=== PATIENT | female | born 1955 | race Hispanic/Latino ===

== ENCOUNTER 2017-12-05 15:28 | Emergency (ER) | payer OTHER ==
[~2017-12-05 15:28] MED LIST: IBUP-2077 PO; METF500T6 PO; NAPR220C15 PO; PANT40TA25 PO; TYL3 PO
== END 2017-12-05 18:08 | disposition home or self-care (01) ==
LOC: EDH 15:28
DX: M25.512 Pain in left shoulder (principal); M54.9 Dorsalgia, unspecified; E11.9 Type 2 diabetes mellitus without complications; I10 Essential (primary) hypertension; E78.5 Hyperlipidemia, unspecified
CPT/HCPCS: 72100; 73030

== ENCOUNTER 2024-11-07 14:57 | Inpatient (IN) | payer OTHER ==
[~2024-11-07] VITALS: Ht 154.9 cm; Wt 79.0 kg
[~2024-11-07 14:57] MED LIST changes: +METF-444 PO; -METF500T6 PO; -PANT40TA25 PO; +PANT40TA54 PO
[2024-11-07 15:21] LABS: BASOPHILS # (AUTO) 0.07 K/uL (0.00-0.20); BASOPHILS % (AUTO) 0.7 % (0.0-5.0); EOSINOPHILS # (AUTO) 0.24 K/uL (0.00-0.70); EOSINOPHILS % (AUTO) 2.5 % (0.0-8.0); HEMATOCRIT 40.1 % (36-48); IMMATURE GRANULOCYTE ABSOLUTE 0.03 K/uL (0-1); LYMPHOCYTES # (AUTO) 3.3 K/uL (1.0-4.8); LYMPHOCYTES % (AUTO) 33.9 % (21.0-51.0); MEAN CORPUSCULAR HEMOGLOBIN 31.3 pg (27.0-33.0); MEAN CORPUSCULAR HGB CONC 33.7 g/dL (32.0-36.0); MONOCYTES # (AUTO) 0.8 K/uL (0.1-1.0); MONOCYTES % (AUTO) 7.8 % (3.0-13.0); NEUTROPHILS # (AUTO) 5.4 K/uL (1.8-7.7); NEUTROPHILS % (AUTO) 54.8 % (40.0-77.0); PLATELET COUNT (AUTO) 268 K/uL (130-400); RED BLOOD CELL COUNT(AUTO) 4.31 MIL/uL (4.00-5.50); RED CELL DISTRIBUTION WIDTH 12.6 % (11.0-15.5); WHITE BLOOD COUNT (AUTO) 9.8 K/uL (4.8-10.8)
[2024-11-07 15:31] LABS: CREATININE 0.9 mg/dL (0.5-1.0); POTASSIUM 3.8 mmol/L (3.5-5.1)
[2024-11-07 15:33] LABS: INR 1.03 (0.85-1.15); PROTHROMBIN TIME 10.9 SEC (9.6-11.6)
[2024-11-07] MEDS ORDERED: CIPR500S4 PO (15:41)
[2024-11-07] MEDS ORDERED: MULT-1203 PO (15:41)
[2024-11-07] MEDS ORDERED: ASPI-1197 PO (15:41)
[2024-11-07] MEDS ORDERED: METR-172 PO (15:41)
[2024-11-07 15:42] LABS: B-TYPE NATRIURETIC PEPTIDE 18 pg/mL (0-100)
--- NOTE | 2024-11-07 16:26 | ERN ---
ED Note History of Present Illness Stated Complaint: ABD PAIN, CP Chief Complaint: Chest Pain Time Seen by MD: 15:00 Dictation: History of present illness: 69-year-old female with past medical history of diabetes, hypertension, diverticulitis, renal stones presented with complaints of sudden onset of chest pain radiating to neck for past 1 hour. Patient was traveling from [place] to [place] when she developed chest pain which lasted for couple of minutes, but her "neck tightness "persists. She also had loose stools with lower abdominal pain since yesterday for which she consulted a doctor at [place]-prescribed her metronidazole and ciprofloxacin tablets. She also complains of left-sided tingling sensation which lasted for a minute, nausea and metallic taste in her mouth. At the time of presentation her vitals were stable. Allergies: Coded Allergies: No Known Drug Allergies (Unverified Allergy, Unknown, 02/11/14) Home Meds Active Scripts Losartan Potassium (Losartan Potassium) 50 Mg Tablet, 1 TAB PO DAILY for 30 Days, #30 TAB 0 Refills Prov:ELEAZAR DUBOSE MD 11/07/24 Semaglutide (Ozempic) 0.25 Mg/0.368 Ml Pen.injctr, 0.25 MG SQ QWEEK, #4 EA 0 Refills Prov:ELEAZAR DUBOSE MD 11/07/24 Fenofibrate,Micronized (Fenofibrate) 134 Mg Capsule, 1 CAP PO DAILY for 30 Days, #30 CAP 0 Refills Prov:ELEAZAR DUBOSE MD 11/07/24 Reported Medications Ciprofloxacin (Cipro) 500 Mg/5 Ml Juana.mc.rec, 500 MG PO BID 11/07/24 Metronidazole (Metronidazole) 500 Mg Tablet, 1 TAB PO BID for 7 Days, #14 TAB 0 Refills 11/07/24 Multivitamin (Multi Vitamin Daily) 1 Each Tablet, 1 TAB PO DAILY for 30 Days, #30 TAB 0 Refills 11/07/24 Aspirin (Aspirin) 81 Mg Tab.chew, 1 TAB PO DAILY for 30 Days, #30 TAB 0 Refills 11/07/24 Pantoprazole Sodium (Pantoprazole Sodium) 40 Mg Tablet.dr, 40 MG PO DAILY, TAB 04/12/16 Discontinued Reported Medications Acetaminophen with Codeine (Tylenol with Codeine #3) 1 Tab Tab, 1 TAB PO TID PRN for PAIN LEVEL 6 TO 10, TAB 04/12/16 Ibuprofen (Ibuprofen 800 mg Tab) 800 Mg Tab, 800 MG PO Q6H for PAIN LEVEL 1 TO 5, TAB 04/12/16 Metformin HCl (Metformin HCl) 500 Mg Tablet, 500 MG PO BID, TAB 04/12/16 Past Medical History Past Medical History: Diabetes-Type II, Hypertension Surgical History: Appendectomy, Hysterectomy, Tonsillectomy, Cholecystectomy Review of System Dictation REVIEW OF SYSTEMS Positive for abdominal pain, loose stools, neck tightness CONSTITUTIONAL: Denies fevers, chills, or night sweats. No unintentional weight loss reported. ENT: No hearing loss, otalgia, otorrhea, rhinitis, rhinorrhea, hoarseness, or sore throat. CARDIOVASCULAR: Denies any exertional angina, dyspnea on exertion, orthopnea, paroxysmal nocturnal dyspnea, palpitations claudication. PULMONARY: Denies any shortness of breath, cough, phlegm / sputum, hemoptysis, pleuritic chest pain. SLEEP: Denies morning headaches, daytime somnolence or napping. Denies difficulty falling asleep, staying asleep, waking from sleep. Denies knowledge of snoring. GASTROINTESTINAL: Denies any type of dysphagia to either liquids or solids. Denies nausea, vomiting, abdominal pain, diarrhea, constipation, blood in stools . NEUROLOGICAL: Denies headache, motor weakness, sensory deficit, vertigo / spinning sensation, gait abnormalities, or tremors. GENITOURINARY: Denies frequency, urgency, nocturia, hematuria or incontinence, low urinary stream, straining to void, urinary intermittency or hesitancy ENDOCRINOLOGY: Denies polyuria, polydipsia, polyphagia or heat / cold intole beena. HEMATOLOGY: Denies thrombophilia / previous clots, or coagulopathy / bleeding disorders. ONCOLOGIC: Denies personal history of malignancy. DERMATOLOGIC: Denies rashes or pruritus. PSYCHIATRIC: Denies any suicidal or homicidal ideation. Denies hallucinations. Initial Vital Sign VS Vital Signs Date Time Temp Pulse Resp B/P (MAP) Pulse Ox O2 Delivery O2 Flow Rate FiO2 11/07/24 15:01 98.6 80 16 155/94 97 Room Air 11/07/24 16:30 0 21 Physical Exam Dictation PHYSICAL EXAM GENERAL APPEARANCE: Well nourished . Awake and alert. Oriented to time, place and person. No acute cardiopulmonary distress. HEENT: Head normocephalic , atraumatic. Sclera anicteric . Pupils are round and reactive. Extraocular movements intact . No conjunctival injection. No nasal congestion. No throat congestion .Oral mucosa moist. NECK: Supple. No JVD. No thyromegaly. No submental, submandibular, pre- /postauricular, occipital or supraclavicular lymphadenopathy. No carotid bruits. CHEST: Normal chest expansion. No Telemetry. LUNGS: Clear to auscultation bilaterally . No rales, rhonchi or any wheezing. Equal tactile fremitus. Resonant to percussion . CARDIOVASCULAR: Regular rate and rhythm. S1 and S2 normal. No rubs, murmurs or gallops. ABDOMEN: Generalized abdominal tenderness + Soft,and nondistended. There is no rebound tenderness, voluntary guarding, or rigidity. No hepatosplenomegaly. Increased bowel sounds NEUROLOGICAL: Cranial nerves II-XII grossly intact. Motor is 5/5 in bilateral upper and lower extremities . No sensory deficits. EXTREMITIES: No edema, No cyanosis , No clubbing. Good capillary refill. SKIN: No skin breakdown. No rashes or lesions . PSYCHIATRY: Normal affect .No auditory or visual hallucinations. Normal speech. No dysarthria. Results (Laboratory/Radiology) Laboratory/Radiology Laboratory Tests Test 11/07/24 15:17 11/07/24 15:50 11/07/24 21:26 11/08/24 03:25 White Blood Count 9.8 K/uL (4.8-10.8) Red Blood Count 4.31 MIL/uL (4.00-5.50) Hemoglobin 13.5 g/dL (12.0-16.0) Hematocrit 40.1 % (36-48) Mean Corpuscular Volume 93.0 fL (79-99) Mean Corpuscular Hemoglobin 31.3 pg (27.0-33.0) Mean Corpuscular Hemoglobin Concent 33.7 g/dL (32.0-36.0) Red Cell Distribution Width 12.6 % (11.0-15.5) Platelet Count 268 K/uL (130-400) Mean Platelet Volume 10.0 fL (7.5-10.5) Immature Granulocyte % (Auto) 0.3 % (0-1) Neutrophils (%) (Auto) 54.8 % (40.0-77.0) Lymphocytes (%) (Auto) 33.9 % (21.0-51.0) Monocytes (%) (Auto) 7.8 % (3.0-13.0) Eosinophils (%) (Auto) 2.5 % (0.0-8.0) Basophils (%) (Auto) 0.7 % (0.0-5.0) Neutrophils # (Auto) 5.4 K/uL (1.8-7.7) Lymphocytes # (Auto) 3.3 K/uL (1.0-4.8) Monocytes # (Auto) 0.8 K/uL (0.1-1.0) Eosinophils # (Auto) 0.24 K/uL (0.00-0.70) Basophils # (Auto) 0.07 K/uL (0.00-0.20) Absolute Immature Granulocyte (auto 0.03 K/uL (0-1) Nucleated Red Blood Cells 0.0 % (0.0-0.19) Prothrombin Time 10.9 SEC (9.6-11.6) Prothromb Time International Ratio 1.03 (0.85-1.15) Sodium Level 138 mmol/L (136-145) 139 mmol/L (136-145) Potassium Level 3.8 mmol/L (3.5-5.1) 3.7 mmol/L (3.5-5.1) Chloride Level 101 mmol/L (101-111) 106 mmol/L (101-111) Carbon Dioxide Level 29 mmol/L (21-32) 25 mmol/L (21-32) Blood Urea Nitrogen 12 mg/dL (7-18) 8 mg/dL (7-18) Creatinine 0.9 mg/dL (0.5-1.0) 0.7 mg/dL (0.5-1.0) Glomerular Filtration Rate Calc 68 mL/min (>90) 92 mL/min (>90) Random Glucose 115 mg/dL (70-105) H 138 mg/dL (70-105) H Total Calcium 9.3 mg/dL (8.5-10.1) 8.2 mg/dL (8.5-10.1) L Magnesium Level 2.00 mg/dL (1.80-2.40) Troponin I High Sensitivity 12 ng/L (4-50) B-Type Natriuretic Peptide 18 pg/mL (0-100) Urine Color LIGHT-YELLOW (YELLOW) Urine Appearance CLEAR (CLEAR) Urine pH 5.5 (5.0-8.0) Urine Specific [place] 1.006 (1.001-1.031) Urine Protein NEGATIVE mg/dL (NEGATIVE) Urine Glucose (UA) NEGATIVE mg/dL (NEGATIVE) Urine Ketones NEGATIVE mg/dL (NEGATIVE) Urine Occult Blood NEGATIVE (NEGATIVE) Urine Nitrate NEGATIVE (NEGATIVE) Urine Bilirubin NEGATIVE mg/dL (NEGATIVE) Urine Urobilinogen 0.2 mg/dL (0.2-1.0) Urine Leukocyte Esterase NEGATIVE Hai/uL Whole Blood Glucose 122 MG/DL (70-110) H Total Bilirubin 0.7 mg/dL (0.2-1.0) Aspartate Amino Transf (AST/SGOT) 28 U/L (10-37) Alanine Aminotransferase (ALT/SGPT) 30 U/L (12-78) Alkaline Phosphatase 66 U/L (50-136) Total Protein 6.7 g/dL (6.0-8.3) Albumin 3.1 g/dL (3.5-5.0) L Test 11/08/24 05:41 Whole Blood Glucose 137 MG/DL (70-110) H EKG Comment: Ventricular rate 80, regular sinus rhythm WA 166, QTC [address] segment elevation or depression Flattening of T-waves in leads 2, 3, AVF, V4 V5 V6. X-RAY Comment: PROCEDURE: CXR1VW - CHEST 1VW Exam Type: CHEST 1VW Clinical Information: CP Comparison: None Findings: The lungs are clear of infiltrates. The heart is normal in size. The bony and soft tissue structures of the chest are unremarkable. Impression: Clear lungs. DICTATED BY: BRIGITTE VIDAL MD DATE: 11/07/24 1639 ELECTRONICALLY SIGNED BY: BRIGITTE VIDAL MD DATE: 11/07/[address] Scan Comment: PROCEDURE: ABD PEL WO - CT ABDOMEN/PELVIS W/O CONTRAST Exam Type: CT ABDOMEN/PELVIS W/O CONTRAST Clinical Information: Loose stools, abdominal pain, history of diverticulitis Comparison: None CT Dose Index (CTDI): 10.20 mGy Dose Length Product (DLP): 530.00 total mGy-cm PROTOCOL: Routine noncontrast helical scanning of the abdomen and pelvis was performed at 5mm collimation. Findings: No evidence of nephro or ureterolithiasis is found. No hydronephrosis or ureteral dilatation is seen. The lung bases are clear. The stomach is unremarkable. It shows no wall thickening. No gross ulceration is seen. It is not overly distended. There are no surrounding inflammatory changes. No wall lesions are identified to suggest cancer. The spleen is unremarkable. It is not enlarged. The pancreas shows normal anatomy. It is not fatty replaced. It shows no lesions. The pancreatic duct is not dilated. The gallbladder is surgically absent. The adrenal glands are unremarkable. There is no enlargement. No lesions are noted. The liver is unremarkable. It shows no focal masses. The appendix is unremarkable. It shows no evidence of inflammation. No appendicolith is seen. The small bowel is unremarkable. There is no evidence of dilatation to suggest obstruction. No evidence of adynamic ileus is seen. There is no small bowel wall thickening to suggest enteritis. The large bowel shows diverticulosis particularly involving the sigmoid colon. In addition, there are inflammatory changes of the sigmoid suggestive of acute diverticulitis. There is no evidence of bowel perforation. The colon is otherwise unremarkable. The urinary bladder is unremarkable. There is no wall thickening to suggest tumor or inflammation. There are no intraluminal calculi. There are no diverticula. There is no evidence of chronic bladder outlet obstruction. There is no evidence of urinary bladder distention to suggest urinary retention. The other pelvic structures are unremarkable. The bony and vascular structures are unremarkable for the patient's age. IMPRESSION: Acute sigmoid diverticulitis without perforation. This study was performed using dose reduction techniques to include automated exposure control and/or adjustment of the mA and/or kV according to patient size. ED Course ED Course Orders Procedure Category Date Status Time Cbc With Differential LAB 11/07/24 Complete 15:05 Prothrombin Time With LAB 11/07/24 Complete INR 15:05 B-Type Natriuretic LAB 11/07/24 Complete Peptide 15:05 Chest 1vw RAD 11/07/24 Resulted 15:05 12 Lead Ekg Tracing- EKG 11/07/24 Complete Technical 15:05 Magnesium LAB 11/07/24 Complete 15:05 Troponin I High LAB 11/07/24 Complete Sensitivity 15:05 Urinalysis Profile LAB 11/07/24 Complete 15:05 Bedside Troponin-I LAB.ER 11/07/24 In Process (Poc) 15:05 Basic Metabolic Panel LAB 11/07/24 Complete 15:05 Ct Abdomen/Pelvis W/O CT 11/07/24 Resulted Contrast 16:09 Pantoprazole 40mg Inj PHA 11/07/24 Complete (Protonix 40mg Inj 16:30 Ketorolac PHA 11/07/24 Complete Tromethamine 15mg/Ml 16:30 0.9% Nacl 500ml PHA 11/07/24 Complete Iv.Soln (Ns 500ml 16:30 Ceftriaxone 1g Vial PHA 11/07/24 Complete (Rocephine 1g Inj) 18:00 Metronidazole PHA 11/07/24 Complete 500mg/100ml Bag 22:00 Admit Orders ADM 11/07/24 Transmitted 18:00 Clear Liquid DIET 11/08/24 Transmitted Breakfast *Nursing CPOE 11/07/24 Transmitted Communication: 18:00 0.9%Nacl 1000ml (Ns PHA 11/07/24 In Process 1000ml) 18:00 Acetaminophen 325 Tab PHA 11/07/24 In Process (Tylenol 325mg Tab 18:00 Ondansetron 4mg Inj PHA 11/07/24 Complete (Zofran 4mg Inj) 18:00 Metronidazole PHA 11/07/24 In Process 500mg/100ml Bag 18:00 Ketorolac PHA 11/07/24 Complete Tromethamine 15mg/Ml 18:00 Levofloxacin 500 PHA 11/07/24 In Process Mg/D5w 100 Ml 18:00 Initiate JANINE 11/07/24 In Process Hyperglycemia Protoco 18:31 Insulin Regular, PHA 11/07/24 Complete Human 3ml (Humulin R 21:00 Enoxaparin Sodium 30 PHA 11/08/24 In Process Mg/0.3 Ml (Lovenox) 09:00 Cbc With Differential LAB 11/08/24 In Process 06:00 Comprehensive LAB 11/08/24 Complete Metabolic Panel 06:00 Ceftriaxone 1g Vial PHA 11/07/24 In Process (Rocephine 1g Inj) 19:00 1/2 Ns 1000ml (0.45% PHA 11/07/24 Complete Nacl 1000ml) 19:00 Pantoprazole 40mg Tab PHA 11/08/24 In Process (Protonix 40mg Tab 09:00 Hydralazine 25mg Tab PHA 11/07/24 In Process ([id number] Tab 19:00 Insulin Regular, PHA 11/07/24 In Process Human 3ml (Humulin R 21:00 Initiate Hypoglycemia JANINE 11/07/24 In Process Protocol 18:46 Dextrose 50%-Water PHA 11/07/24 In Process (D50w) 19:00 Glucagon 1mg Kit PHA 11/07/24 In Process (Glucagon 1mg Kit) 19:00 Initiate Po JANINE 11/07/24 In Process Hypokalemia Protoc 18:46 Potassium Chloride PHA 11/07/24 In Process 20meq/100ml ([place] 19:00 Potassium Chl 10% PHA 11/07/24 In Process Elixir 20meq (Kcl 10% 19:00 Potassium Chloride PHA 11/07/24 In Process 20meq Er (K-Dur/Klor- 19:00 Notify Physician If CPOE 11/07/24 Transmitted There Is 18:46 Notify Md On The Next CPOE 11/07/24 Transmitted 18:46 Notify Md On The CPOE 11/07/24 Transmitted Next(Cont.) 18:46 Glucometer ___ Times CPOE 11/07/24 Transmitted A Day: 18:48 Ketorolac PHA 11/07/24 In Process Tromethamine 15mg/Ml 19:00 Ondansetron 4mg Inj PHA 11/07/24 In Process (Zofran 4mg Inj) 19:00 Vital Signs(Adult CPOE 11/07/24 Transmitted Hospitalist) 18:53 Mag/Alum/Simeth 30ml PHA 11/07/24 In Process (Maalox Plus 30ml) 19:00 Admit Orders ADM 11/07/24 Transmitted 18:53 Condition: CPOE 11/07/24 Transmitted 18:53 Ambulate ___ Times/Day CPOE 11/07/24 Transmitted 18:53 Activity: Br W/Brp CPOE 11/07/24 Transmitted With Assist 18:53 Apply Scds CPOE 11/07/24 Transmitted 18:53 Apply Knee High Teds CPOE 11/07/24 Transmitted 18:53 Clonidine Hcl 0.1 Mg PHA 11/07/24 In Process Tablet (Catapres 0. 19:00 Tramadol PHA 11/07/24 Complete Hcl/Acetaminophen 19:00 Morphine 2mg Syg PHA 11/07/24 In Process (Morphine 2mg Syg) 19:00 Vital Signs Date Time Temp Pulse Resp B/P (MAP) Pulse Ox O2 Delivery O2 Flow Rate FiO2 11/08/24 04:46 97.7 69 18 140/82 96 Room Air 11/08/24 01:00 96 Room Air* 0 11/08/24 00:35 97.9 65 20 151/83 97 Room Air 11/08/24 00:04 64 16 150/77 98 Room Air* 0 11/07/24 22:27 98.2 68 18 133/72 98 Room Air* 0 11/07/24 21:22 98.1 70 18 172/78 99 Room Air* 0 11/07/24 19:56 98.4 78 18 178/89 98 Room Air* 0 11/07/24 18:58 98.4 68 18 167/87 99 Room Air* 0 11/07/24 17:36 98.2 72 18 174/88 100 Room Air* 0 11/07/24 16:30 98.4 70 18 128/74 99 Room Air* 0 11/07/24 15:01 98.6 80 16 155/94 97 Room Air 3:15 P.M.:HEART Score for Major Cardiac Events RESULT SUMMARY: 4 points Moderate Score (4-6 points) Risk of MACE of 12-16.6%. INPUTS: History > 0 = Slightly suspicious EKG > 0 = Normal Age > 2 = >65 Risk factors > 2 = >3 risk factors or history of atherosclerotic disease Initial troponin > 0 = >normal limit 4:00 P.M.: Patient is hemodynamically stable. EKG without any acute changes. Labs and troponins within normal limits. 5:00 p.m.: Patient remained hemodynamically stable. she complains of abdominal pain. Requested Toradol, IV fluids, IV pantoprazole. 5:45 p.m.: CT abdomen showed acute sigmoid diverticulitis. Discussed about the same with the patient and bystanders. Patient confirms understanding. We will admit the patient. 5:50 p.m.: Patient is admitted under Dr. Dubose HEART Score Response (Comments) Value History: Low suspicion (0) 0 EKG: Normal 0 Age: > 65yrs (+2) 2 Risk Factors: 3+ risk factors (+2) 2 Initial Troponin: Normal limit (0) 0 HEART Score Risk: Mod Risk for MACE (4-6) Total 4 Medical Decision Making MDM Differential diagnosis : Acute gastritis, ACS, acute diverticulitis, UTI Rationale: Tests considered and ordered secondary to shared decision making include: I will re-evaluate the patient after treatment and diagnostic exams have returned to determine whether they require further testing, can be safely discharged home, or need admission for further treatment and evaluation. Given the social determinants of health affecting care, including literacy, access to medical care, prescription drug management, and [id number] drugs, I will ensure that treatment plans are tailored accordingly. There are no social concerns with this patient. Risk of complication and/or morbidity or mortality of patient management: None Need for hospitalization: Patient does not meet criteria for hospitalization. Need for emergency major/minor surgery: No Prescription drug management Prescriptions will include symptomatic care Medications-Per medication reconciliation Previous outside records reviewed: Old ER visits. Patient's prior external medical records from other ER visits were reviewed by me as indicated. Prior testing and results from previous visits were reviewed. Prior tests were taken into account with medical decision making and resource utilization, independent historian/historians were used to obtain complete medical history. I independently interpreted the test that were performed, results were reviewed by me and considered findings on radiology. Medical management and examination interpretation discussions was done by me with other qualified healthcare professionals as indicated for the patient's care. Revaluation: Patient is diagnosed with acute sigmoid diverticulitis Disposition : Admit DX & DISP Disposition: Inpatient Departure Impression: Primary Impression: Acute diverticulitis of intestine Additional Impression: Chest pain of unknown etiology Critical Time: 30 minutes Condition: Stable Scripts Losartan Potassium (Losartan Potassium) 50 Mg Tablet 1 TAB PO DAILY for 30 Days, #30 TAB 0 Refills Prov: ELEAZAR DUBOSE MD 11/07/24 Semaglutide (Ozempic) 0.25 Mg/0.368 Ml Pen.injctr 0.25 MG SQ QWEEK, #4 EA 0 Refills Prov: ELEAZAR DUBOSE MD 11/07/24 Fenofibrate,Micronized (Fenofibrate) 134 Mg Capsule 1 CAP PO DAILY for 30 Days, #30 CAP 0 Refills Prov: ELEAZAR DUBOSE MD 11/07/24 Referrals: ELEAZAR DUBOSE MD (PCP) ATTESTATION BY PHYSICIAN I have seen and examined the patient. I reviewed the documentation, medical decision making, and treatment plan as noted by the resident provider above. I agree with the findings and plan of care. Dr. Tung Tomlin MD I performed the substantive portion of the visit. I have reviewed and personally made and approve the management plan that is documented in the notes by myself or the resident physician. I acknowledge full responsibility for the patient's management plan. WILLIE JACKSON MD Nov 07, 2024 16:26 TUNG TOMLIN MD Nov 08, 2024 07:53
[2024-11-07 16:31] LABS: APPEARANCE,URINE CLEAR (CLEAR); BILIRUBIN,URINE NEGATIVE (NEGATIVE); COLOR,URINE LIGHT-YELLOW (YELLOW); GLUCOSE, URINE (UA) NEGATIVE (NEGATIVE); KETONES,URINE NEGATIVE (NEGATIVE); LEUKOCYTE ESTERASE ,URINE NEGATIVE Leu/uL (NEGATIVE); NITRATE,URINE NEGATIVE (NEGATIVE); OCCULT BLOOD,URINE NEGATIVE (NEGATIVE); PH,URINE 5.5 (5.0-8.0); PROTEIN,URINE NEGATIVE (NEGATIVE); UROBILINOGEN,URINE 0.2 mg/dL (0.2-1.0)
[2024-11-07] MEDS: ketOROlac 15MG/ML VIAL (15MG/ML) IM ONE (16:34)
[2024-11-07] MEDS: PANTOPrazole 40 MG/VIAL IVP ONE (16:34)
[2024-11-07] MEDS: 0.9% NACL 500ML IV.SOLN 500 ML IV ONE (16:34)
[2024-11-07 16:36] LABS: ADD UA MICROSCOPIC NO
--- NOTE | 2024-11-07 16:42 | HMCIMG ---
Exam Type: CHEST 1VW Clinical Information: CP Comparison: None Findings: The lungs are clear of infiltrates. The heart is normal in size. The bony and soft tissue structures of the chest are unremarkable. Impression: Clear lungs.
--- NOTE | 2024-11-07 16:58 | HMCIMG ---
Exam Type: CT ABDOMEN/PELVIS W/O CONTRAST Clinical Information: Loose stools, abdominal pain, history of diverticulitis Comparison: None CT Dose Index (CTDI): 10.20 mGy Dose Length Product (DLP): 530.00 total mGy-cm PROTOCOL: Routine noncontrast helical scanning of the abdomen and pelvis was performed at 5mm collimation. Findings: No evidence of nephro or ureterolithiasis is found. No hydronephrosis or ureteral dilatation is seen. The lung bases are clear. The stomach is unremarkable. It shows no wall thickening. No gross ulceration is seen. It is not overly distended. There are no surrounding inflammatory changes. No wall lesions are identified to suggest cancer. The spleen is unremarkable. It is not enlarged. The pancreas shows normal anatomy. It is not fatty replaced. It shows no lesions. The pancreatic duct is not dilated. The gallbladder is surgically absent. The adrenal glands are unremarkable. There is no enlargement. No lesions are noted. The liver is unremarkable. It shows no focal masses. The appendix is unremarkable. It shows no evidence of inflammation. No appendicolith is seen. The small bowel is unremarkable. There is no evidence of dilatation to suggest obstruction. No evidence of adynamic ileus is seen. There is no small bowel wall thickening to suggest enteritis. The large bowel shows diverticulosis particularly involving the sigmoid colon. In addition, there are inflammatory changes of the sigmoid suggestive of acute diverticulitis. There is no evidence of bowel perforation. The colon is otherwise unremarkable. The urinary bladder is unremarkable. There is no wall thickening to suggest tumor or inflammation. There are no intraluminal calculi. There are no diverticula. There is no evidence of chronic bladder outlet obstruction. There is no evidence of urinary bladder distention to suggest urinary retention. The other pelvic structures are unremarkable. The bony and vascular structures are unremarkable for the patient's age. IMPRESSION: Acute sigmoid diverticulitis without perforation. This study was performed using dose reduction techniques to include automated exposure control and/or adjustment of the mA and/or kV according to patient size.
[2024-11-07] MEDS ORDERED: ketOROlac 15MG/ML VIAL (15MG/ML) IM PRN (18:00)
[2024-11-07] MEDS ORDERED: ondanSETRON 4MG INJ IVP PRN (18:00)
[2024-11-07] MEDS ORDERED: LOSA50TA64 PO (18:45)
[2024-11-07] MEDS ORDERED: SEMA0.258 SQ (18:45)
[2024-11-07] MEDS ORDERED: FENO134C21 PO (18:45)
[2024-11-07] MEDS ORDERED: cloNIDine HCL 0.1 MG TABLET PO PRN (19:00)
[2024-11-07] MEDS ORDERED: DEXTROSE 50%-WATER 50 ML DISP.SYRIN IV PRN (19:00)
[2024-11-07] MEDS ORDERED: GLUCAGON 1MG KIT 1 MG ML IM PRN (19:00)
[2024-11-07] MEDS ORDERED: PoTASSium chloRIDE 20MEQ ER 20 MEQ ERTAB PO PRN (19:00)
[2024-11-07] MEDS ORDERED: PoTASSium chl 10% ELIXIR 20MEQ 20 MEQ/15 ML UDCUP PO PRN (19:00)
[2024-11-07] MEDS ORDERED: PoTASSium chloRIDE 20MEQ/100ML 100 ML IV PRN (19:00)
[2024-11-07] MEDS ORDERED: MAG/ALUM/SIMETH 30 ML UDCUP PO PRN (19:00)
[2024-11-07] MEDS ORDERED: traMADol /APAP 37.5MG/325MG TAB PO PRN (19:00)
[2024-11-07] MEDS ORDERED: 1/2 NS 1000ML 1,000 ML IV SCH (19:00)
[2024-11-07] MEDS: metRONIDazole 500MG/100ML BAG IV SCH (19:05)
--- NOTE | 2024-11-07 19:06 | HP ---
HISTORY AND PHYSICAL Date of Visit: Nov 07, 2024 Time of Visit: 19:00 ADMISSION DATE: Nov 07, 2024 at 14:58 CC: CP / ABDOMINAL PAIN HPI: This is a 69-year-old woman with past medical history of diabetes, hypertension, diverticulosis, renal stones who presented with complaints of sudden onset of chest pain radiating to neck for past 1 hour. Patient was traveling from [place] to [place] when she developed chest pain which lasted for couple of minutes, but her "neck tightness "persists. Of note she has a history of a negatives Lexiscan Stress Test in 2022 as well as a benign Echo. She also had loose stools with lower abdominal pain since yesterday for which she consulted a doctor at a local Urgent Care in [place]. He prescribed her metronidazole and ciprofloxacin tablets. She began to take them and did not feel better so her family decided to drive her back home. On the drive back home her LLQ abdominal pain got very severe so her family brought her in to this local ER for evaluation. She also complained nausea and metallic taste in her mouth and described her diarrhea as loose watery stools and had had several that day. There is no history of fevers, chills, vomiting or constipation. No SOB palpitations or lower leg swelling. She also had no other prior episodes similar to this in the past. 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 HYPERLIPIDEMIA MIXED DJD GEN MULT SITES OBESITY / BMI 32 OSTEOPENIA GERD ALLERGIC RHINITIS STATIN MYOPATHY S/P APPENDECTOMY S/P CHOLECYSTECTOMY S/P TOTAL HYSTERECTOMY SOCIAL HISTORY: Lives locally no alcohol tobacco or drug abuse FAMILY HISTORY: + COPD DM HTN DEMENTIA ^ Patient History: Cancer FATHER (PROSTATE CA) Chronic obstructive lung disease BROTHER Family history: Alzheimer's disease SISTER Family history: Diabetes mellitus FATHER BROTHER BROTHER Family history: Hypertension MOTHER Stroke MOTHER, Onset:67 No Family History of: Family history: Asthma Family history: Cardiovascular disease Parkinson's disease Sudden Allergies: Coded Allergies: No Known Drug Allergies (Unverified Allergy, Unknown, 02/11/14) Scheduled Aspirin (Aspirin), 1 TAB PO DAILY, (Reported) Ciprofloxacin (Cipro), 500 MG PO BID, (Reported) Fenofibrate,Micronized (Fenofibrate), 1 CAP PO DAILY Losartan Potassium (Losartan Potassium), 1 TAB PO DAILY Metronidazole (Metronidazole), 1 TAB PO BID, (Reported) Multivitamin (Multi Vitamin Daily), 1 TAB PO DAILY, (Reported) Pantoprazole Sodium (Pantoprazole Sodium), 40 MG PO DAILY, (Reported) Semaglutide (Ozempic), 0.25 MG SQ QWEEK Discontinued Medications Acetaminophen with Codeine (Tylenol with Codeine #3), 1 TAB PO TID PRN for PAIN LEVEL 6 TO 10, (Reported) Ibuprofen (Ibuprofen 800 mg Tab), 800 MG PO Q6H, (Reported) Metformin HCl (Metformin HCl), 500 MG PO BID, (Reported) Review of Systems Normal Constitutional:, Normal Eyes:, Normal Ear/Nose/Mouth/Throat, Normal Respiratory:, Normal Genitourinary:, Normal Integumentary:, Normal Musculoskeletal:, Normal Neurological:, Normal Psychological:, Normal Endocrine:, Normal Hematologic/Lymphatic:, Normal Allergic/Immunologic:; Abnormal Cardiovascular: (REFER TO HPI), Abnormal Gastrointestinal: (REFER TO HPI) Physical Exam Vital Signs Vital Signs Date Time Temp Pulse Resp B/P (MAP) Pulse Ox O2 Delivery O2 Flow Rate FiO2 11/07/24 15:01 98.6 80 16 155/94 97 Room Air 11/07/24 16:30 0 21 Appearance: Well dev, well nourished Eyes: Clear, EOM Normal Ear/Nose/Mouth/Throat: Oropharynx WNL Neck: Symmetric, trach midline Cardiovascular: PMI WNL, Regular Rate, Regular Rhythm, No Edema Respiratory: No Retractions, No rubs/wheezing, Lungs clear G.I.: Normal bowel sounds, No hernias present, No rebound tenderness, Abnormal (TENDER LLQ) Lymphatic: No lymphadenopathy neck, No lymphadenopathy groin Musculoskeletal: Gait WNL, Strength/Tone WNL Breasts: Symmetrical, no masses Skin: No rash/ulcers Neurology: Nerves I-XII intact, Sensation WNL Psychology: Insight WNL, Orientation WNL, Affect WNL Diagnostics Laboratory Tests Test 11/07/24 15:17 11/07/24 15:50 Range/Units White Blood Count 9.8 4.8-10.8 K/uL Red Blood Count 4.31 4.00-5.50 MIL/uL Hemoglobin 13.5 12.0-16.0 g/dL Hematocrit 40.1 36-48 % Mean Corpuscular Volume 93.0 79-99 fL Mean Corpuscular Hemoglobin 31.3 27.0-33.0 pg Mean Corpuscular Hemoglobin Concent 33.7 32.0-36.0 g/dL Red Cell Distribution Width 12.6 11.0-15.5 % Platelet Count 268 130-400 K/uL Mean Platelet Volume 10.0 7.5-10.5 fL Immature Granulocyte % (Auto) 0.3 0-1 % Neutrophils (%) (Auto) 54.8 40.0-77.0 % Lymphocytes (%) (Auto) 33.9 21.0-51.0 % Monocytes (%) (Auto) 7.8 3.0-13.0 % Eosinophils (%) (Auto) 2.5 0.0-8.0 % Basophils (%) (Auto) 0.7 0.0-5.0 % Neutrophils # (Auto) 5.4 1.8-7.7 K/uL Lymphocytes # (Auto) 3.3 1.0-4.8 K/uL Monocytes # (Auto) 0.8 0.1-1.0 K/uL Eosinophils # (Auto) 0.24 0.00-0.70 K/uL Basophils # (Auto) 0.07 0.00-0.20 K/uL Absolute Immature Granulocyte (auto 0.03 0-1 K/uL Nucleated Red Blood Cells 0.0 0.0-0.19 % Prothrombin Time 10.9 9.6-11.6 SEC Prothromb Time International Ratio 1.03 0.85-1.15 Sodium Level 138 136-145 mmol/L Potassium Level 3.8 3.5-5.1 mmol/L Chloride Level 101 101-111 mmol/L Carbon Dioxide Level 29 21-32 mmol/L Blood Urea Nitrogen 12 7-18 mg/dL Creatinine 0.9 0.5-1.0 mg/dL Glomerular Filtration Rate Calc 68 >90 mL/min Random Glucose 115 70-105 mg/dL Total Calcium 9.3 8.5-10.1 mg/dL Magnesium Level 2.00 1.80-2.40 mg/dL Troponin I High Sensitivity 12 4-50 ng/L B-Type Natriuretic Peptide 18 0-100 pg/mL Urine Color LIGHT-YELLOW YELLOW Urine Appearance CLEAR CLEAR Urine pH 5.5 5.0-8.0 Urine Specific [place] 1.006 1.001-1.031 Urine Protein NEGATIVE NEGATIVE mg/dL Urine Glucose (UA) NEGATIVE NEGATIVE mg/dL Urine Ketones NEGATIVE NEGATIVE mg/dL Urine Occult Blood NEGATIVE NEGATIVE Urine Nitrate NEGATIVE NEGATIVE Urine Bilirubin NEGATIVE NEGATIVE mg/dL Urine Urobilinogen 0.2 0.2-1.0 mg/dL Urine Leukocyte Esterase NEGATIVE NEGATIVE Hai/uL Assessment/Plan Assessment/Plan ASSESSMENT: THIS IS A 69 YR OLD WOMAN WITH HISTORY OF HTN WITH CKD 2 DM II W COMPLICATIONS HYPERLIPIDEMIA MIXED DJD GEN MULT SITES OBESITY / BMI 32 OSTEOPENIA GERD ALLERGIC RHINITIS STATIN MYOPATHY S/P APPENDECTOMY S/P CHOLECYSTECTOMY S/P TOTAL HYSTERECTOMY SHE PRESENTED WITH ACUTE DIVERTICULITIS FAILING OUTPATIENT MANAGEMENT ATYPICAL NON CARDIAC CHEST AND NECK PAIN -MUSCULOSKELETAL PLAN: IV ANTIBIOTICS CLEAR LIQUID DIET AND ADVANCE TOLERATED IVF HYDRATION ANTI EMETICS AND ANALGESICS NEEDED SUPPLEMENT ELECTROLYTES MONITOR BP AND GLUCOSE AND ADJUST MEDS ACCORDINGLY DVT W TEDS AND SCD'S STRESS ULCER PROPHYLAXIS W PPI SUPPORTIVE MEASURES ELEAZAR WATERS MD Nov 07, 2024 19:06
[2024-11-07] MEDS: cefTRIAXone 1G VIAL IVPB ONE (19:30)
[2024-11-07] MEDS: 0.9%NACL 1000ML 1,000 ML IV SCH (19:41)
[2024-11-07] MEDS: levoFLOXacin 500 MG/D5W 100 ML IV SCH (19:41)
[2024-11-07] MEDS: cefTRIAXone 1G VIAL IVPB SCH (19:41)
[2024-11-07] MEDS: hydrALAZine 25MG TABLET PO PRN (20:02)
[2024-11-07] MEDS ORDERED: INSULIN humuLIN R 100 UNIT/ML 3ML SQ SCH (21:00)
[2024-11-07] MEDS: INSULIN humuLIN R 100 UNIT/ML 3ML SQ SCH (21:00)
[2024-11-07] MEDS: morPHINE 2 MG SYG IVP PRN (21:24)
[2024-11-07] MEDS ORDERED: metRONIDazole 500MG/100ML BAG 100 ML IVPB ONE (22:00)
--- NOTE | 2024-11-07 23:32 | NUR ---
ASSUMED PATIENT CARE AT THIS TIME.
[2024-11-08] VITALS (9 sets, daily range): BP systolic 137–167; BP diastolic 67–94; PULSE 61–69; RESP 16–20; TEMP 97.6–98.3; O2SAT 95–97
[2024-11-08] MEDS: ketOROlac 15MG/ML VIAL (15MG/ML) IM PRN (01:14)
[2024-11-08 06:41] LABS: BASOPHILS # (AUTO) 0.05 K/uL (0.00-0.20); BASOPHILS % (AUTO) 0.7 % (0.0-5.0); EOSINOPHILS # (AUTO) 0.16 K/uL (0.00-0.70); EOSINOPHILS % (AUTO) 2.4 % (0.0-8.0); HEMATOCRIT 35.7 % (36-48); IMMATURE GRANULOCYTE ABSOLUTE 0.03 K/uL (0-1); LYMPHOCYTES # (AUTO) 2.2 K/uL (1.0-4.8); LYMPHOCYTES % (AUTO) 31.6 % (21.0-51.0); MEAN CORPUSCULAR HEMOGLOBIN 31.6 pg (27.0-33.0); MEAN CORPUSCULAR HGB CONC 34.2 g/dL (32.0-36.0); MEAN CORPUSCULAR VOLUME 92.5 fL (79-99); MONOCYTES # (AUTO) 0.6 K/uL (0.1-1.0); MONOCYTES % (AUTO) 8.4 % (3.0-13.0); NEUTROPHILS # (AUTO) 3.8 K/uL (1.8-7.7); NEUTROPHILS % (AUTO) 56.5 % (40.0-77.0); PLATELET COUNT (AUTO) 235 K/uL (130-400); RED BLOOD CELL COUNT(AUTO) 3.86 MIL/uL (4.00-5.50); RED CELL DISTRIBUTION WIDTH 12.7 % (11.0-15.5); WHITE BLOOD COUNT (AUTO) 6.8 K/uL (4.8-10.8)
[2024-11-08 06:52] LABS: ALBUMIN 3.1 g/dL (3.5-5.0); BILIRUBIN,TOTAL 0.7 mg/dL (0.2-1.0); CREATININE 0.7 mg/dL (0.5-1.0); POTASSIUM 3.7 mmol/L (3.5-5.1); TOTAL PROTEIN, SERUM 6.7 g/dL (6.0-8.3)
--- NOTE | 2024-11-08 07:02 | EKG ---
[facility] Test Date: 2024-11-07 Test Time: 15:04:21 Pat Name: JENIFER CORTEZ Department: [facility] Room: 412 1 Gender: F New Order Clerk: [id number] : 1955 Requested By: LINDA TOMLIN Order Number: [id number] Reading MD: Corry Garcia Measurements Intervals [place] Rate: 80 P: 56 NM: 166 QRS: -27 QRSD: 86 T: 58 QT: 315 QTc: 364 Interpretive Statements Sinus rhythm Compared to ECG 03/12/2015 07:51:17 No significant changes Electronically Signed On 11-09-2024 14:37:37 CDT by Corry Garcia Please click the below link to view image of tracing.
[2024-11-08] MEDS: ENOXAPARIN SODIUM 30 MG/0.3 ML SQ SCH (08:16)
[2024-11-08] MEDS: PANTOPrazole 40 MG TAB DR PO SCH (08:16)
--- NOTE | 2024-11-08 13:07 | NUR ---
DCP Patient states lives with Noe Caban, Spouse [phone] and grandson in a house with a tub. 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 States able to complete DL's on her own. States she has a cane, regular walker and shower chair. Denies home health services, home care provider or dialysis. PCP - Karla Dubose MD Pharmacy - [facility]. Upon discharge, Noe Caban, Spouse [phone] and assist with care, as needed. Addendum: 11/08/24 at 1311 by TAMMI COLE RN CM Amended: Links added.
[2024-11-08] MEDS: ketOROlac 15MG/ML VIAL (15MG/ML) IV PRN (14:56)
[2024-11-08] MEDS: ondanSETRON 4MG INJ IVP PRN (21:40)
--- NOTE | 2024-11-08 23:50 | PN ---
Subjective Review of Systems PROGRESS NOTE Date of Visit: Nov 08, 2024 Time of Visit: 23:50 Events since last encounter PATIENT WITH DECREASED ABD PAIN BUT STILL AT A LEVEL 5/10 Subjective NO N/V AND DIARRHEA IS BETTER General: No Fever, No Chills, No Night Sweats, No Fatigue, No Malaise, No Appetite, No Other HEENT: No Head Aches, No Visual Changes, No Eye Pain, No Ear Pain, No Dysphasia, No Sinus Congestion, No Post Nasal Drip, No Sore Throat, No Other Pulmonary: No Dyspnea, No Cough, No Pleuritic Chest Pain, No Other Cardiovascular: No: Chest Pain, Palpitations, Orthopnea, Paroxysmal Noc. Dyspnea, Edema, Lt Headedness, Other Gastrointestinal: Abdominal Pain, Diarrhea; No: Nausea, Vomiting, Constipation, Melena, Hematochezia, Other Genitourinary: No Dysuria, No Frequency, No Incontinence, No Hematuria, No Retention, No Other Musculoskeletal: No: other, neck pain, shoulder pain, arm pain, back pain, hand pain, leg pain, foot pain Skin: No Urticaria, No Rash, No Other Neurological: No: Weakness, Numbness, Incoordination, Change in speech, Confusion, Seizures, Other Objective Vitals and I/O Vital Sign (Last 24 Hours) 11/08/24 11/08/24 08:00 20:00 Temp 98.2 Pulse 61 Resp 16 B/P (MAP) 167/88 Pulse Ox 98 O2 Delivery Room Air O2 Flow Rate 0 FiO2 21 Intake & Output (last 24hrs) 11/07/24 11/07/24 11/08/24 15:00 23:00 07:00 Intake Total 1200.0 ml Balance 1200.0 ml General: Alert, Oriented X3, Cooperative, No acute distress HEENT: Atraumatic, PERRLA, EOMI, Mucous membr. moist/pink Neck: Supple, No JVD, No thyromegaly Lungs: Clear to auscultation, Normal air movement, NL respiratory effort Heart: Regular rate, Regular rhythm Abdomen: Normal bowel sounds, Soft, Other (TENDER LLQ) Extremities: No clubbing, No cyanosis, No edema Skin: No rashes, No breakdown Neuro: Normal gait, Normal speech, Sensation intact Psych/Mental Status: Mental status NL, Mood NL, Thoughts/Content NL Results RADIOLOGY: [] EKG: [] Laboratory Tests Test 11/08/24 03:25 11/08/24 05:41 11/08/24 11:40 11/08/24 15:50 White Blood Count 6.8 K/uL (4.8-10.8) # Red Blood Count 3.86 MIL/uL (4.00-5.50) L Hemoglobin 12.2 g/dL (12.0-16.0) Hematocrit 35.7 % (36-48) L Mean Corpuscular Volume 92.5 fL (79-99) Mean Corpuscular Hemoglobin 31.6 pg (27.0-33.0) Mean Corpuscular Hemoglobin Concent 34.2 g/dL (32.0-36.0) Red Cell Distribution Width 12.7 % (11.0-15.5) Platelet Count 235 K/uL (130-400) Mean Platelet Volume 10.2 fL (7.5-10.5) Immature Granulocyte % (Auto) 0.4 % (0-1) Neutrophils (%) (Auto) 56.5 % (40.0-77.0) Lymphocytes (%) (Auto) 31.6 % (21.0-51.0) Monocytes (%) (Auto) 8.4 % (3.0-13.0) Eosinophils (%) (Auto) 2.4 % (0.0-8.0) Basophils (%) (Auto) 0.7 % (0.0-5.0) Neutrophils # (Auto) 3.8 K/uL (1.8-7.7) Lymphocytes # (Auto) 2.2 K/uL (1.0-4.8) Monocytes # (Auto) 0.6 K/uL (0.1-1.0) Eosinophils # (Auto) 0.16 K/uL (0.00-0.70) Basophils # (Auto) 0.05 K/uL (0.00-0.20) Absolute Immature Granulocyte (auto 0.03 K/uL (0-1) Nucleated Red Blood Cells 0.0 % (0.0-0.19) Sodium Level 139 mmol/L (136-145) Potassium Level 3.7 mmol/L (3.5-5.1) Chloride Level 106 mmol/L (101-111) Carbon Dioxide Level 25 mmol/L (21-32) Blood Urea Nitrogen 8 mg/dL (7-18) Creatinine 0.7 mg/dL (0.5-1.0) Glomerular Filtration Rate Calc 92 mL/min (>90) Random Glucose 138 mg/dL (70-105) H Total Calcium 8.2 mg/dL (8.5-10.1) L Total Bilirubin 0.7 mg/dL (0.2-1.0) Aspartate Amino Transf (AST/SGOT) 28 U/L (10-37) Alanine Aminotransferase (ALT/SGPT) 30 U/L (12-78) Alkaline Phosphatase 66 U/L (50-136) Total Protein 6.7 g/dL (6.0-8.3) Albumin 3.1 g/dL (3.5-5.0) L Whole Blood Glucose 137 MG/DL (70-110) H 112 MG/DL (70-110) H 105 MG/DL (70-110) Test 11/08/24 19:54 Whole Blood Glucose 123 MG/DL (70-110) H Medications Current Medications Pantoprazole Sodium 40 mg ONCE ONCE IVP Last administered on 11/07/24at 16:34; Start 11/07/24 at 16:30; Stop 11/07/24 at 16:31; Status DC Ketorolac Tromethamine 15 mg ONCE ONCE IM Last administered on 11/07/24at 16:34; Start 11/07/24 at 16:30; Stop 11/07/24 at 16:31; Status DC Sodium Chloride 500 ml @ 100 mls/hr Q5H ONCE IV Last administered on 11/07/24at 16:34; Start 11/07/24 at 16:30; Stop 11/07/24 at 21:29; Status DC Ceftriaxone Sodium 1 gm ONCE ONCE IVPB; Start 11/07/24 at 18:00; Stop 11/07/24 at 18:01; Status DC Metronidazole/ Sodium Chloride 100 ml @ 100 mls/hr ONCE ONCE IVPB; Start 11/07/24 at 22:00; Stop 11/07/24 at 18:12; Status DC Sodium Chloride 1,000 ml @ 125 mls/hr Q8H IV Last administered on 11/08/24at 18:00; Start 11/07/24 at 18:00; Stop 12/07/24 at 17:59 Acetaminophen 650 mg Q6H PRN PO; Start 11/07/24 at 18:00; Stop 12/07/24 at 17:59 Ondansetron HCl 4 mg Q8H PRN IVP; Start 11/07/24 at 18:00; Stop 11/07/24 at 18:54; Status DC Metronidazole/ Sodium Chloride 500 mg Q8H IV Last administered on 11/08/24at 19:12; Start 11/07/24 at 18:00; Stop 11/17/24 at 17:59 Levofloxacin/ Dextrose 500 mg Q24H IV Last administered on 11/08/24at 19:10; Start 11/07/24 at 18:00; Stop 11/17/24 at 17:59 Ketorolac Tromethamine 15 mg Q6H PRN IM; Start 11/07/24 at 18:00; Stop 11/07/24 at 18:54; Status DC Insulin Human Regular INSULIN SLIDING SCAL... ACHS SQ; Start 11/07/24 at 21:00; Stop 11/07/24 at 18:54; Status DC Enoxaparin Sodium 30 mg DAILY SQ Last administered on 11/08/24at 08:16; Start 11/08/24 at 09:00; Stop 12/08/24 at 08:59 Ceftriaxone Sodium 1 gm Q24H IVPB Last administered on 11/08/24at 19:11; Start 11/07/24 at 19:00; Stop 11/17/24 at 18:59 Sodium Chloride 1,000 ml @ 125 mls/hr Q8H IV; Start 11/07/24 at 19:00; Stop 11/07/24 at 18:53; Status DC Pantoprazole Sodium 40 mg DAILY PO Last administered on 11/08/24at 08:16; Start 11/08/24 at 09:00; Stop 12/08/24 at 08:59 Hydralazine HCl 25 mg TID PRN PO Last administered on 11/08/24at 21:22; Start 11/07/24 at 19:00; Stop 12/07/24 at 18:59 Insulin Human Regular INSULIN SLIDING SCAL... ACHS SQ; Start 11/07/24 at 21:00; Stop 12/07/24 at 20:59 Dextrose 50 ml AD PRN IV; Start 11/07/24 at 19:00; Stop 12/07/24 at 18:59 Glucagon 1 mg AD PRN IM; Start 11/07/24 at 19:00; Stop 12/07/24 at 18:59 Potassium Chloride 100 ml @ 100 mls/hr AD PRN IV; Start 11/07/24 at 19:00; Stop 12/07/24 at 18:59 Potassium Chloride 20 meq AD PRN PO; Start 11/07/24 at 19:00; Stop 12/07/24 at 18:59 Potassium Chloride 20 meq AD PRN PO; Start 11/07/24 at 19:00; Stop 12/07/24 at 18:59 Ketorolac Tromethamine 30 mg Q8H5 PRN IM Last administered on 11/08/24at 01:14; Start 11/07/24 at 19:00; Stop 11/08/24 at 13:57; Status DC Ondansetron HCl 4 mg Q6H6 PRN IVP Last administered on 11/08/24at 21:40; Start 11/07/24 at 19:00; Stop 12/07/24 at 17:59 Al Hydroxide/Mg Hydroxide 30 ml Q6H PRN PO; Start 11/07/24 at 19:00; Stop 12/07/24 at 18:59 Clonidine HCl 0.1 mg Q4H PRN PO; Start 11/07/24 at 19:00; Stop 12/07/24 at 18:59 Tramadol/ Acetaminophen 2 tab Q6H PRN PO; Start 11/07/24 at 19:00; Stop 11/07/24 at 19:17; Status DC Morphine Sulfate 2 mg Q4H PRN IVP Last administered on 11/08/24at 21:41; Start 11/07/24 at 19:00; Stop 11/14/24 at 18:59 Ketorolac Tromethamine 15 mg Q8H PRN IV Last administered on 11/08/24at 14:56; Start 11/08/24 at 14:00; Stop 11/13/24 at 13:59 Assessment/Plan ASSESSMENT: THIS IS A 69 YR OLD WOMAN WITH HISTORY OF HTN WITH CKD 2 DM II W COMPLICATIONS HYPERLIPIDEMIA MIXED DJD GEN MULT SITES OBESITY / BMI 32 OSTEOPENIA GERD ALLERGIC RHINITIS STATIN MYOPATHY S/P APPENDECTOMY S/P CHOLECYSTECTOMY S/P TOTAL HYSTERECTOMY SHE PRESENTED WITH ACUTE DIVERTICULITIS FAILING OUTPATIENT MANAGEMENT ATYPICAL NON CARDIAC CHEST AND NECK PAIN -MUSCULOSKELETAL PLAN: IV ANTIBIOTICS WITH LEVAQUIN AND FLAGYL CLEAR LIQUID DIET ABD PAIN IMPROVING SLOWLY - STILL NEEDING MORPHINE BUT LESS WILL HOLD ON ADVANCING DIET DUE TO PERSISTENT PAIN CONT IVF HYDRATION ANTI EMETICS AND ANALGESICS NEEDED SUPPLEMENT ELECTROLYTES MONITOR BP AND GLUCOSE AND ADJUST MEDS ACCORDINGLY DVT W TEDS AND SCD'S STRESS ULCER PROPHYLAXIS W PPI SUPPORTIVE MEASURES ELEAZAR WATERS MD Nov 08, 2024 23:50
[2024-11-09] VITALS (9 sets, daily range): BP systolic 132–154; BP diastolic 69–91; PULSE 69–72; RESP 16–20; TEMP 97.7–98.3; O2SAT 96
[2024-11-09] MEDS ORDERED: traMADol HCL 50 MG TABLET PO PRN (00:30)
[2024-11-09] MEDS: metRONIDazole 500 MG TABLET PO SCH (01:44)
[2024-11-09] MEDS: traMADol HCL 50 MG TABLET PO PRN (11:21)
[2024-11-09] MEDS: acetaMINOPHEN 325 MG TAB PO PRN (15:05)
--- NOTE | 2024-11-09 16:21 | HMCIMG ---
Exam Type: ABD 1VW Clinical Information: abdomen pain Comparison: None Findings: Abdomen demonstrates no evidence of pathologic calcification or soft tissue mass. There are no radiopacities to suggest calculous disease. The intestinal gas pattern is within normal limits without evidence of dilatation to suggest obstruction or adynamic ileus. The bony structures are unremarkable. IMPRESSION: Normal abdomen.
[2024-11-09] MEDS: acetaMINOPHEN 325 MG TAB PO SCH (17:00)
--- NOTE | 2024-11-09 17:23 | PN ---
Subjective Review of Systems PROGRESS NOTE Date of Visit: Nov 09, 2024 Time of Visit: 17:19 Events since last encounter patient C/O SHE IS HUNGRY Subjective SOME NAUSEA AND DIARRHEA IS LESS DESCRIBES BLACK STOOL General: No Fever, No Chills, No Night Sweats, No Fatigue, No Malaise, No Appetite, No Other HEENT: No Head Aches, No Visual Changes, No Eye Pain, No Ear Pain, No Dysphasia, No Sinus Congestion, No Post Nasal Drip, No Sore Throat, No Other Pulmonary: No Dyspnea, No Cough, No Pleuritic Chest Pain, No Other Cardiovascular: No: Chest Pain, Palpitations, Orthopnea, Paroxysmal Noc. Dyspnea, Edema, Lt Headedness, Other Gastrointestinal: Nausea, Vomiting, Abdominal Pain, Diarrhea; No: Constipation, Melena, Hematochezia, Other Genitourinary: No Dysuria, No Frequency, No Incontinence, No Hematuria, No Retention, No Other Musculoskeletal: No: other, neck pain, shoulder pain, arm pain, back pain, hand pain, leg pain, foot pain Skin: No Urticaria, No Rash, No Other Neurological: No: Weakness, Numbness, Incoordination, Change in speech, Confusion, Seizures, Other Objective Vitals and I/O Vital Sign (Last 24 Hours) 11/09/24 11/09/24 11:59 15:50 Temp 97.9 Pulse 71 Resp 19 B/P (MAP) 154/69 Pulse Ox 97 O2 Delivery Room Air O2 Flow Rate 0 FiO2 21 Intake & Output (last 24hrs) 11/08/24 11/08/24 11/09/24 15:00 23:00 07:00 Intake Total 220 ml 220 ml 900.0 ml Balance 220 ml 220 ml 900.0 ml General: Alert, Oriented X3, Cooperative, No acute distress HEENT: Atraumatic, PERRLA, EOMI, Mucous membr. moist/pink Neck: Supple, No JVD, No thyromegaly Lungs: Clear to auscultation, Normal air movement, NL respiratory effort Heart: Regular rate, Regular rhythm Abdomen: Normal bowel sounds, Soft, Other (TENDER LLQ) Extremities: No clubbing, No cyanosis, No edema Skin: No rashes, No breakdown Neuro: Normal gait, Normal speech, Sensation intact Psych/Mental Status: Mental status NL, Mood NL, Thoughts/Content NL Results RADIOLOGY: [] EKG: [] Laboratory Tests Test 11/08/24 19:54 11/09/24 05:25 11/09/24 11:17 11/09/24 15:33 Whole Blood Glucose 123 MG/DL (70-110) H 183 MG/DL (70-110) H 119 MG/DL (70-110) H 162 MG/DL (70-110) H Medications Current Medications Pantoprazole Sodium 40 mg ONCE ONCE IVP Last administered on 11/07/24at 16:34; Start 11/07/24 at 16:30; Stop 11/07/24 at 16:31; Status DC Ketorolac Tromethamine 15 mg ONCE ONCE IM Last administered on 11/07/24at 16:34; Start 11/07/24 at 16:30; Stop 11/07/24 at 16:31; Status DC Sodium Chloride 500 ml @ 100 mls/hr Q5H ONCE IV Last administered on 11/07/24at 16:34; Start 11/07/24 at 16:30; Stop 11/07/24 at 21:29; Status DC Ceftriaxone Sodium 1 gm ONCE ONCE IVPB; Start 11/07/24 at 18:00; Stop 11/07/24 at 18:01; Status DC Metronidazole/ Sodium Chloride 100 ml @ 100 mls/hr ONCE ONCE IVPB; Start 11/07/24 at 22:00; Stop 11/07/24 at 18:12; Status DC Sodium Chloride 1,000 ml @ 75 mls/hr [id number] IV Last administered on 11/09/24at 11:16; Start 11/07/24 at 18:00; Stop 12/07/24 at 17:59 Acetaminophen 650 mg Q6H PRN PO Last administered on 11/09/24at 15:05; Start 11/07/24 at 18:00; Stop 12/07/24 at 17:59 Ondansetron HCl 4 mg Q8H PRN IVP; Start 11/07/24 at 18:00; Stop 11/07/24 at 18:54; Status DC Metronidazole/ Sodium Chloride 500 mg Q8H IV Last administered on 11/08/24at 19:12; Start 11/07/24 at 18:00; Stop 11/09/24 at 00:20; Status DC Levofloxacin/ Dextrose 500 mg Q24H IV Last administered on 11/08/24at 19:10; Start 11/07/24 at 18:00; Stop 11/09/24 at 00:20; Status DC Ketorolac Tromethamine 15 mg Q6H PRN IM; Start 11/07/24 at 18:00; Stop 11/07/24 at 18:54; Status DC Insulin Human Regular INSULIN SLIDING SCAL... ACHS SQ; Start 11/07/24 at 21:00; Stop 11/07/24 at 18:54; Status DC Enoxaparin Sodium 30 mg DAILY SQ Last administered on 11/09/24at 08:53; Start 11/08/24 at 09:00; Stop 11/09/24 at 16:29; Status DC Ceftriaxone Sodium 1 gm Q24H IVPB Last administered on 11/08/24at 19:11; Start 11/07/24 at 19:00; Stop 11/09/24 at 00:20; Status DC Sodium Chloride 1,000 ml @ 125 mls/hr Q8H IV; Start 11/07/24 at 19:00; Stop 11/07/24 at 18:53; Status DC Pantoprazole Sodium 40 mg DAILY PO Last administered on 11/09/24at 08:52; Start 11/08/24 at 09:00; Stop 11/09/24 at 16:29; Status DC Hydralazine HCl 25 mg TID PRN PO Last administered on 11/08/24at 21:22; Start 11/07/24 at 19:00; Stop 12/07/24 at 18:59 Insulin Human Regular INSULIN SLIDING SCAL... ACHS SQ; Start 11/07/24 at 21:00; Stop 12/07/24 at 20:59 Dextrose 50 ml AD PRN IV; Start 11/07/24 at 19:00; Stop 12/07/24 at 18:59 Glucagon 1 mg AD PRN IM; Start 11/07/24 at 19:00; Stop 12/07/24 at 18:59 Potassium Chloride 100 ml @ 100 mls/hr AD PRN IV; Start 11/07/24 at 19:00; Stop 12/07/24 at 18:59 Potassium Chloride 20 meq AD PRN PO; Start 11/07/24 at 19:00; Stop 12/07/24 at 18:59 Potassium Chloride 20 meq AD PRN PO; Start 11/07/24 at 19:00; Stop 12/07/24 at 18:59 Ketorolac Tromethamine 30 mg Q8H5 PRN IM Last administered on 11/08/24at 01:14; Start 11/07/24 at 19:00; Stop 11/08/24 at 13:57; Status DC Ondansetron HCl 4 mg Q6H6 PRN IVP Last administered on 11/08/24at 21:40; Start 11/07/24 at 19:00; Stop 12/07/24 at 17:59 Al Hydroxide/Mg Hydroxide 30 ml Q6H PRN PO; Start 11/07/24 at 19:00; Stop 12/07/24 at 18:59 Clonidine HCl 0.1 mg Q4H PRN PO; Start 11/07/24 at 19:00; Stop 12/07/24 at 18:59 Tramadol/ Acetaminophen 2 tab Q6H PRN PO; Start 11/07/24 at 19:00; Stop 11/07/24 at 19:17; Status DC Morphine Sulfate 2 mg Q4H PRN IVP Last administered on 11/08/24at 21:41; Start 11/07/24 at 19:00; Stop 11/09/24 at 00:40; Status DC Ketorolac Tromethamine 15 mg Q8H PRN IV Last administered on 11/08/24at 14:56; Start 11/08/24 at 14:00; Stop 11/09/24 at 00:40; Status DC Metronidazole 500 mg Q8H PO Last administered on 11/09/24at 11:15; Start 11/09/24 at 02:00; Stop 11/19/24 at 01:59 Levofloxacin 500 mg Q24H PO; Start 11/09/24 at 18:00; Stop 11/19/24 at 17:59 Tramadol HCl 50 mg Q6H PRN PO Last administered on 11/09/24at 11:21; Start 11/09/24 at 00:30; Stop 11/14/24 at 00:29 Tramadol HCl 100 mg Q6H PRN PO; Start 11/09/24 at 00:30; Stop 11/14/24 at 00:29 Acetaminophen 650 mg QID PO; Start 11/09/24 at 17:00; Stop 12/09/24 at 16:59 Pantoprazole Sodium 40 mg BID PO; Start 11/09/24 at 21:00; Stop 12/08/24 at 08:59 Assessment/Plan ASSESSMENT: THIS IS A 69 YR OLD WOMAN WITH HISTORY OF HTN WITH CKD 2 DM II W COMPLICATIONS HYPERLIPIDEMIA MIXED DJD GEN MULT SITES OBESITY / BMI 32 OSTEOPENIA GERD ALLERGIC RHINITIS STATIN MYOPATHY S/P APPENDECTOMY S/P CHOLECYSTECTOMY S/P TOTAL HYSTERECTOMY SHE PRESENTED WITH ACUTE DIVERTICULITIS FAILING OUTPATIENT MANAGEMENT ATYPICAL NON CARDIAC CHEST AND NECK PAIN -MUSCULOSKELETAL REPORTS BLACK STOOLS PLAN: CHANGE IV ANTIBIOTICS WITH LEVAQUIN AND FLAGYL TO PO ADVANCE DIET TOLERATE WEAN TO ORAL PAIN MEDS TOLERATED WEAN IVF HYDRATION ANTI EMETICS PRN SUPPLEMENT ELECTROLYTES MONITOR BP AND GLUCOSE AND ADJUST MEDS ACCORDINGLY ENCOURAGED MORE AMBULATION, D/C TORADOL, LOVENOX, STRESS ULCER PROPHYLAXIS W PPI AND INC TO BID SUPPORTIVE MEASURES D/C PLANNING IN PROGRESS UPDATED PATIENT AND AT BEDSIDE ELEAZAR WATERS MD Nov 09, 2024 17:23
[2024-11-09] MEDS: levoFLOXacin 500 MG TABLET PO SCH (18:13)
[2024-11-09] MEDS: PANTOPrazole 40 MG TAB DR PO SCH (20:00)
[2024-11-10 03:09] VITALS: BP 154/90; PULSE 71; RESP 17; TEMP 98.1
[2024-11-10 08:00] VITALS: O2SAT 98
[2024-11-10 08:04] VITALS: BP 150/94; PULSE 69; RESP 18; TEMP 98.2
--- NOTE | 2024-11-10 09:25 | DS ---
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 The heart is normal in size. The bony and soft tissue structures of the chest are unremarkable. Impression: Clear lungs. ABD PEL WO - CT ABDOMEN/PELVIS W/O CONTRAST Findings: No evidence of nephro or ureterolithiasis is found. No hydronephrosis or ureteral dilatation is seen. The lung bases are clear. The stomach is unremarkable. It shows no wall thickening. No gross ulceration is seen. It is not overly distended. There are no surrounding inflammatory changes. No wall lesions are identified to suggest cancer. The spleen is unremarkable. It is not enlarged. The pancreas shows normal anatomy. It is not fatty replaced. It shows no lesions. The pancreatic duct is not dilated. The gallbladder is surgically absent. The adrenal glands are unremarkable. There is no enlargement. No lesions are noted. The liver is unremarkable. It shows no focal masses. The appendix is unremarkable. It shows no evidence of inflammation. No appendicolith is seen. The small bowel is unremarkable. There is no evidence of dilatation to suggest obstruction. No evidence of adynamic ileus is seen. There is no small bowel wall thickening to suggest enteritis. The large bowel shows diverticulosis particularly involving the sigmoid colon. In addition, there are inflammatory changes of the sigmoid suggestive of acute diverticulitis. There is no evidence of bowel perforation. The colon is otherwise unremarkable. The urinary bladder is unremarkable. There is no wall thickening to suggest tumor or inflammation. There are no intraluminal calculi. There are no diverticula. There is no evidence of chronic bladder outlet obstruction. There is no evidence of urinary bladder distention to suggest urinary retention. The other pelvic structures are unremarkable. The bony and vascular structures are unremarkable for the patient's age. IMPRESSION: Acute sigmoid diverticulitis without perforation. This study was performed using dose reduction techniques to include automated exposure control and/or adjustment of the mA and/or kV according to patient size. ABD 1VW - ABD 1VW Findings: Abdomen demonstrates no evidence of pathologic calcification or soft tissue mass. There are no radiopacities to suggest calculous disease. The intestinal gas pattern is within normal limits without evidence of dilatation to suggest obstruction or adynamic ileus. The bony structures are unremarkable. IMPRESSION: Normal abdomen. HOSPITAL COURSE: THIS IS A 69 YR OLD WOMAN WITH THE ABOVE PMH WHO PRESENTED WITH ACUTE DIVERTICULITIS FAILING OUTPATIENT MANAGEMENT, ATYPICAL NON CARDIAC CHEST AND NECK PAIN -MUSCULOSKELETAL IN NATURE. SHE WAS TREATED WITH IV ANTIBIOTICS WITH LEVAQUIN AND FLAGYL, NPO, IVF ANALGESICS AND ANTIEMETICS UNTIL HER SYMPTOMS IMPROVED. SHE WAS THEN STARTED ON ORAL INTAKE WITH ORAL ANTIBIOTICS. HER BOWELS WERE MOVING BUT CONTINUED TO HAVE SOME INTERMITTENT ABDOMINAL PAIN AND HAD A FU KUB AND THOUGHT TO BE RELATED TO GASTROPARESIS AND ANALGESICS. SHE WAS ENCOURAGED TO AMBULATE MORE AND WEAN ANALGESICS AND SHE DID IMPROVE SIGNIFICANTLY AND DISCHARGED HOME ONCE SHE ABLE TO TOLERATE HER DIET WITHOUT ANALGESICS. SHE DID COMPLAIN OF SOME BLACK STOOLS BUT HER H/H REMAINED STABLE AND THE STOOLS THAT WERE NOTED BY STAFF WERE SUBSEQUENTLY NORMAL DARK BROWN IN COLOR. SHE WAS ASKED TO CONTINUE A BLAND DIET AND TO CONTINUE TO INCREASE HER MOBILITY. REPORTS BLACK STOOLS -NO ACTIVE BLEEDING GASTROPARESIS DIET: ADA HEART HEALTHY ACTIVITY: INCREASE AMBULATION TOLERATED CONDITION: STABLE EQUIPMENT: NONE FOLLOW UP APPOINTMENT(S): DR DUBOSE 2-5 DAYS DISPOSITION: HOME CODE STATUS: FULL MEDICATION RECONCILIATION : RESUME PREVIOUS HOME MEDS EXCEPT CONTINUE TO HOLD OZEMPIC AND METFORMIN DUE TO GI SYMPTOMS RESUME METRONIDAZOLE AND CIPRO - SHE SAID SHE HAD AT HOME PRIOR TO ADMISSION ^ Home Meds Active Scripts Losartan Potassium (Losartan Potassium) 50 Mg Tablet, 1 TAB PO DAILY for 30 Days, #30 TAB 0 Refills Prov:ELEAZAR DUBOSE MD 11/07/24 Fenofibrate,Micronized (Fenofibrate) 134 Mg Capsule, 1 CAP PO DAILY for 30 Days, #30 CAP 0 Refills Prov:ELEAZAR DUBOSE MD 11/07/24 Reported Medications Multivitamin (Multi Vitamin Daily) 1 Each Tablet, 1 TAB PO DAILY for 30 Days, #30 TAB 0 Refills 11/07/24 Aspirin (Aspirin) 81 Mg Tab.chew, 1 TAB PO DAILY for 30 Days, #30 TAB 0 Refills 11/07/24 Pantoprazole Sodium (Pantoprazole Sodium) 40 Mg Tablet.dr, 40 MG PO DAILY, TAB 04/12/16 Discontinued Reported Medications Ciprofloxacin (Cipro) 500 Mg/5 Ml [place].mc.rec, 500 MG PO BID 11/07/24 Metronidazole (Metronidazole) 500 Mg Tablet, 1 TAB PO BID for 7 Days, #14 TAB 0 Refills 11/07/24 Acetaminophen with Codeine (Tylenol with Codeine #3) 1 Tab Tab, 1 TAB PO TID PRN for PAIN LEVEL 6 TO 10, TAB 04/12/16 Ibuprofen (Ibuprofen 800 mg Tab) 800 Mg Tab, 800 MG PO Q6H for PAIN LEVEL 1 TO 5, TAB 04/12/16 Metformin HCl (Metformin HCl) 500 Mg Tablet, 500 MG PO BID, TAB 04/12/16 Discontinued Scripts Semaglutide (Ozempic) 0.25 Mg/0.368 Ml Pen.injctr, 0.25 MG SQ QWEEK, #4 EA 0 Refills Prov:ELEAZAR DUBOSE MD 11/07/24 ELEAZAR DUBOSE MD Nov 10, 2024 09:25
--- NOTE | 2024-11-10 12:20 | NUR ---
Patient d/c note Patient was taken downstairs via wheelchair accompanied by a TRIM INSTALLER and her spouse.
== END 2024-11-10 12:20 | disposition home or self-care (01) | DRG 392 ==
LOC: EDH 14:57 → EDHIP 14:58 → OBSVTOIN 14:58 → UNDOADMOB 18:00 → EDHIP 18:00 → 4BH 23:58
PROVIDERS: ADMIT Internal Medicine; ATTEND Internal Medicine
DX: K57.32 Diverticulitis of large intestine without perforation or abscess without bleeding (principal); I12.9 Hypertensive chronic kidney disease with stage 1 through stage 4 chronic kidney disease, or unspecified chronic kidney disease; K21.9 Gastro-esophageal reflux disease without esophagitis; J44.9 Chronic obstructive pulmonary disease, unspecified; M85.80 Other specified disorders of bone density and structure, unspecified site; N18.2 Chronic kidney disease, stage 2 (mild); E78.2 Mixed hyperlipidemia; E11.43 Type 2 diabetes mellitus with diabetic autonomic (poly)neuropathy; E66.9 Obesity, unspecified; E11.22 Type 2 diabetes mellitus with diabetic chronic kidney disease; K31.84 Gastroparesis; G72.89 Other specified myopathies; Z68.32 Body mass index [BMI] 32.0-32.9, adult; Z90.710 Acquired absence of both cervix and uterus; Z90.49 Acquired absence of other specified parts of digestive tract; Z79.899 Other long term (current) drug therapy; Z79.84 Long term (current) use of oral hypoglycemic drugs; Z79.1 Long term (current) use of non-steroidal anti-inflammatories (NSAID); Z83.3 Family history of diabetes mellitus; Z82.5 Family history of asthma and other chronic lower respiratory diseases; Z82.49 Family history of ischemic heart disease and other diseases of the circulatory system; Z82.3 Family history of stroke; Z82.0 Family history of epilepsy and other diseases of the nervous system; Z80.42 Family history of malignant neoplasm of prostate; Z79.82 Long term (current) use of aspirin
CPT/HCPCS: 36415; 71045; 74018; 74176; 80048; 80053; 81003; 82948; 83735; 83880; 84484; 85025; 85610; 93005; G0378; J0696; J1650; J1885; J1956; J2270; J2405; J2470; J3490; J7040

== ENCOUNTER → 2025-01-24 | Outpatient (CLI) | payer OTHER ==
[~2025-01-24] MED LIST changes: +ASPI-1197 PO; +FENO134C21 PO; -IBUP-2077 PO; +LOSA50TA64 PO; -METF-444 PO; +MULT-1203 PO; -NAPR220C15 PO; -TYL3 PO
== END | disposition home or self-care (01) ==
LOC: CANSCHCLI → RAH 10:18
PROVIDERS: ATTEND Internal Medicine
DX: Z12.31 Encounter for screening mammogram for malignant neoplasm of breast (principal)
CPT/HCPCS: 77067

== ENCOUNTER 2025-04-19 09:55 | Emergency (ER) | payer OTHER ==
[~2025-04-19] VITALS: Ht 157.5 cm; Wt 79.4 kg
--- NOTE | 2025-04-19 10:10 | ERN ---
General Chief Complaint: Chest Pain Stated Complaint: CHEST PAIN THAT STARTED THIS MORNING AT 0400 Time Seen by MD: 09:58 History of Present Illness Initial Comments 69-year-old female history of diabetes, hypertension, dyslipidemia, presents for chest pains. Patient reports center of the chest chest pain that radiates to right shoulder. It awoke her from sleep at about 4:00 a.m.. Has been consis tent for the last few hours. No dyspnea. She reports mild dizziness. No nausea or vomiting. No GI symptoms. She does report that earlier this year, she saw her occupational rehabilitation aide, Dr Rod, and she had a nuclear stress test which was unremarkable. No recent swelling, fevers, productive cough, or any other respiratory symptoms. Allergies: Coded Allergies: [id number] Reductase Inhibitor (Unverified Allergy, Unknown, 04/19/25) Home Meds Active Scripts Losartan Potassium (Losartan Potassium) 50 Mg Tablet, 1 TAB PO DAILY for 30 Days, #30 TAB 0 Refills Prov:ELEAZAR DUBOSE MD 11/07/24 Fenofibrate,Micronized (Fenofibrate) 134 Mg Capsule, 1 CAP PO DAILY for 30 Days, #30 CAP 0 Refills Prov:ELEAZAR DUBOSE MD 11/07/24 Reported Medications Multivitamin (Multi Vitamin Daily) 1 Each Tablet, 1 TAB PO DAILY for 30 Days, #30 TAB 0 Refills 11/07/24 Aspirin (Aspirin) 81 Mg Tab.chew, 1 TAB PO DAILY for 30 Days, #30 TAB 0 Refills 11/07/24 Pantoprazole Sodium (Pantoprazole Sodium) 40 Mg Tablet., 40 MG PO DAILY, TAB 04/12/16 Past Medical History Past Medical History: Diabetes-Type II, Hypertension Past Surgical History: Appendectomy, Hysterectomy, Tonsillectomy, Cholecystectomy ROS Dictation CONSTITUTIONAL: No chills, no fever, no weakness, no diaphoresis, no malaise. HEAD/FACE: No signs of trauma. EENT: No eye pain, no blurred vision, no tearing, no double vision, no ear pain, no ear discharge, no nose pain, no nasal congestion, no throat pain, no throat swelling, no mouth pain. RESPIRATORY: No cough, no orthopnea, no SOB, no stridor, no wheezing. CARDIOVASCULAR: Chest pain GASTROINTESTINAL/ABDOMINAL: No abdominal pain, no constipation, no diarrhea, no nausea, no vomiting. GENITOURINARY: No abnormal discharge, no dysuria, no frequent urination, no hematuria. No complaints of pain in the genitals. MUSCULOSKELETAL: No back pain, no gout, no joint pain, no joint swelling, no muscle pain, no muscle stiffness, no neck pain. INTEGUMENTARY: No change in color, no change in hair/nails, no dryness, no lesion, no lumps, no rash. NEUROLOGICAL/PSYCH: No anxiety, not depressed, no emotional problem, no headache, no numbness, no pre-existing deficit, no history of seizures, no tremors, no weakness. HEMATOLOGIC/LYMPHATIC: Not anemic, no history of blood clots, no apparent bleeding, no bruising, glands not swollen. All Systems Negative, Except as Noted. Physical Exam Physical Exam Dictation VITAL SIGNS: Reviewed. GENERAL APPEARANCE: Alert, oriented x3, no acute distress. HEAD AND FACE: Non-traumatic. EYES: PERRL, pink conjunctivas, eyelid no trauma, anterior chamber clear. EARS: Pinnas intact and no signs of trauma or erythema. Ear canals clear and no discharge. TMs no erythema. NOSE: No discharge, no bleeding. OROPHARYNX: Mouth normal, teeth no caries, tongue pink. Pharynx clear, no erythema. Tonsils no exudates, no abscesses noted. Mucous membrane moist. NECK: Supple, non-tender, no thyromegaly, no masses, no JVD, no bruits. BREAST: Deferred. CHEST: No tenderness, no crepitus, no paradoxical movement, no retractions. LUNGS: Clear, well-ventilated, symmetric, no rales, no wheezing, no rhonchi, no stridor, good breath sounds bilaterally. HEART: Regular rate, regular rhythm, no murmur, no gallops. VASCULAR: No peripheral edema. ABDOMEN: Soft, positive bowel sounds, nondistended, no guarding, nontender, no rebound, no masses no hepatomegaly, no splenomegaly, no Sharma's sign, no hernias. RECTAL: Deferred. GENITAL: Deferred. NEUROLOGICAL: Normal speech, gross motor function intact, gross sensory function intact. MUSCULOSKELETAL: Neck nontender, full range of motion, back nontender, full range of motion. EXTREMITIES: Nontender, full range of motion. SKIN: Color pink, dry, no turgor, no rash, no lacerations, no abrasions, no contusions. LYMPHATICS: Deferred. Results Laboratory and Microbiology Lab and Micro Result Laboratory Tests Test 04/19/25 10:07 04/19/25 10:55 White Blood Count 8.2 K/uL (4.8-10.8) Red Blood Count 4.40 MIL/uL (4.00-5.50) Hemoglobin 13.8 g/dL (12.0-16.0) Hematocrit 40.9 % (36-48) Mean Corpuscular Volume 93.0 fL (79-99) Mean Corpuscular Hemoglobin 31.4 pg (27.0-33.0) Mean Corpuscular Hemoglobin Concent 33.7 g/dL (32.0-36.0) Red Cell Distribution Width 12.3 % (11.0-15.5) Platelet Count 258 K/uL (130-400) Mean Platelet Volume 10.5 fL (7.5-10.5) Immature Granulocyte % (Auto) 0.5 % (0-1) Neutrophils (%) (Auto) 61.4 % (40.0-77.0) Lymphocytes (%) (Auto) 26.7 % (21.0-51.0) Monocytes (%) (Auto) 7.5 % (3.0-13.0) Eosinophils (%) (Auto) 3.2 % (0.0-8.0) Basophils (%) (Auto) 0.7 % (0.0-5.0) Neutrophils # (Auto) 5.0 K/uL (1.8-7.7) Lymphocytes # (Auto) 2.2 K/uL (1.0-4.8) Monocytes # (Auto) 0.6 K/uL (0.1-1.0) Eosinophils # (Auto) 0.26 K/uL (0.00-0.70) Basophils # (Auto) 0.06 K/uL (0.00-0.20) Absolute Immature Granulocyte (auto 0.04 K/uL (0-1) Nucleated Red Blood Cells 0.0 % (0.0-0.19) Prothrombin Time 10.4 SEC (9.6-11.6) Prothromb Time International Ratio 0.98 (0.85-1.15) Activated Partial Thromboplast Time 23.5 SEC (26.3-35.5) L D-Dimer Quantitative (PE/DVT) 1234 ng/mL (0-500) *H Sodium Level 134 mmol/L (136-145) L Potassium Level 4.7 mmol/L (3.5-5.1) Chloride Level 100 mmol/L (101-111) L Carbon Dioxide Level 30 mmol/L (21-32) Blood Urea Nitrogen 17 mg/dL (7-18) Creatinine 0.9 mg/dL (0.5-1.0) Glomerular Filtration Rate Calc 68 mL/min (>90) Random Glucose 222 mg/dL (70-105) H Total Calcium 9.3 mg/dL (8.5-10.1) Magnesium Level 2.00 mg/dL (1.80-2.40) Total Creatine Kinase 83 U/L (21-232) Troponin I High Sensitivity 9 ng/L (4-50) 10 ng/L (4-50) MDM CC: Chest pain Historian: Patient Comorbidities: Diabetes, hypertension, high cholesterol, history of appendectomy, hysterectomy, tonsillectomy, cholecystectomy Limitations by social determinants of health: None Differential diagnosis: ACS, PE, indigestion, musculoskeletal pain, arrhythmia, other. Vital signs: Stable, remained stable in the ER EKG: Sinus rhythm, rate 64, left axis deviation, good R-wave progression, intervals are stable no STEMI. Independently interpreted by me. Labs (independently ordered and interpreted by me): No leukocytosis no anemia. Coags stable. Chemistries stable. Glucose 222. Troponin x2 is normal. D- dimer elevated. Chest x-ray (independently interpreted by me): No acute fractures, cardiomegaly, pleural effusions or major abnormalities. Due to the elevated D-dimer we will get a CT angiogram. CT angiogram is unremarkable. No signs of PE. I did consult the patient's PCP Dr. Dubose. She checked the patient's chart, and she did have a recent stress test which was unremarkable. This point in time since there was no signs of acute ACS, she has been worked up for cardiac in the past, no signs of pulmonary embolism or any other life threats, we agreed that the patient can be discharged safely and follow up on Tuesday in Dr. Dubose office. Patient agrees with this plan. ED Course Orders Procedure Category Date Status Time Cbc With Differential LAB 04/19/25 Complete 10:02 Prothrombin Time With LAB 04/19/25 Complete INR 10:02 Chest 1vw RAD 04/19/25 Resulted 10:02 12 Lead Ekg Tracing- EKG 04/19/25 Complete Technical 10:02 Magnesium LAB 04/19/25 Complete 10:02 Creatine Kinase, Total LAB 04/19/25 Complete 10:02 Troponin I High LAB 04/19/25 Complete Sensitivity 10:02 Partial LAB 04/19/25 Complete Thromboplastin Time 10:02 Basic Metabolic Panel LAB 04/19/25 Complete 10:02 Troponin I High LAB 04/19/25 Complete Sensitivity 10:41 Aspirin 325mg Tab PHA 04/19/25 Complete (Aspirin 325mg Tab) 11:00 Morphine 4mg Syg PHA 04/19/25 Complete (Morphine 4mg Syg) 11:00 D-Dimer LAB 04/19/25 Complete 10:41 Ct Chest Pe Protocol CT 04/19/25 Resulted Wwo Cont 11:26 Iohexol (Omnipaque) PHA 04/19/25 Complete 12:34 Current Medications Medications (Trade) Dose Ordered Sig/Lyndsay Route PRN Reason Start Time Stop Time Status Last Admin Dose Admin Aspirin (Aspirin 325mg Tab) 325 mg ONCE ONCE PO 04/19/25 11:00 04/19/25 11:01 DC 04/19/25 10:54 Iohexol (Omnipaque) 75 ml STK-MED ONCE IV 04/19/25 12:34 04/19/25 12:34 DC Morphine Sulfate (morPHINE 4MG SYG) 4 mg ONCE ONCE IVP 04/19/25 11:00 04/19/25 11:01 DC 04/19/25 10:54 Vital Signs Date Time Temp Pulse Resp B/P (MAP) Pulse Ox O2 Delivery O2 Flow Rate FiO2 04/19/25 11:26 97.9 68 20 150/77 97 Room Air* 0 04/19/25 10:15 97.5 62 17 152/75 98 Room Air* 0 04/19/25 09:56 97.7 66 16 153/63 97 Room Air DX & DISP Disposition: Discharge Departure Impression: Primary Impression: Chest pain of unknown etiology Condition: Stable Additional Instructions: There are no life-threatening findings today regarding your chest pain. Your EKG is stable. Your chest x-ray and the CT angiogram of your chest are unremarkable. Your blood work (CBC, metabolic panel, troponin x2, coagulopathy studies, magnesium level) is unremarkable. I recommend that you take [id number] Tylenol or ibuprofen as needed for pain or discomfort. Your case was discussed with Dr. Dubose. I recommend that you visit her office on Tuesday. Referrals: ELEAZAR DUBOSE MD (PCP) ETHEL GRIMES DO Apr 19, 2025 10:10
[2025-04-19 10:21] LABS: IMMATURE GRANULOCYTE ABSOLUTE 0.04 K/uL (0-1); NUCLEATED RED BLOOD CELLS 0.0 % (0.0-0.19); PLATELET COUNT (AUTO) 258 K/uL (130-400); RED BLOOD CELL COUNT(AUTO) 4.40 MIL/uL (4.00-5.50); RED CELL DISTRIBUTION WIDTH 12.3 % (11.0-15.5); WHITE BLOOD COUNT (AUTO) 8.2 K/uL (4.8-10.8)
--- NOTE | 2025-04-19 10:23 | HMCIMG ---
CHEST 1VW REASON: chest pain COMPARISON: Prior chest radiograph from 11/07/2024 is available. FINDINGS: Single view of the chest was obtained. Lungs are clear. Heart size is normal. There is no pulmonary vascular congestion. Mediastinum and bony thorax appear unremarkable. The study is unchanged from prior study. IMPRESSION: 1. Normal single view chest x-ray.
[2025-04-19 10:27] LABS: CREATININE 0.9 mg/dL (0.5-1.0); GLOMERULAR FILTR. RATE CALC 68.0 mL/min (>90); GLUCOSE,RANDOM 222.0 mg/dL (70-105); SODIUM SERUM 134.0 mmol/L (136-145); UREA NITROGEN, BLOOD 17.0 mg/dL (7-18)
[2025-04-19 10:28] LABS: INR 0.98 (0.85-1.15)
[2025-04-19 10:32] LABS: CREATINE KINASE, TOTAL 83.0 U/L (21-232)
[2025-04-19] MEDS: ASPIRIN 325MG TAB PO ONE (10:54)
--- NOTE | 2025-04-19 12:21 | EKG ---
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
[2025-04-19] MEDS ORDERED: IOHEXOL-350 75 ML VIAL IV ONE (12:34)
--- NOTE | 2025-04-19 13:15 | HMCIMG ---
CT CHEST PE PROTOCOL WWO CONT REASON: elevated d-dimer, CP TECHNIQUE: Thin axial images through the chest were obtained during bolus intravenous administration of 75 ml of Omnipaque 350. Sagittal and coronal reconstruction images were performed. FINDINGS: The main pulmonary arteries and their first and second order branches have normal caliber and enhancement throughout. No intraluminal filling defect is identified. Thoracic aorta is unremarkable. Heart size is within normal limits. No pleural or pericardial effusion is identified. Lungs are clear. No pneumothorax is noted. There is no mediastinal or axillary lymphadenopathy. Limited evaluation of the upper abdomen is unremarkable. The bladder is surgically absent with clips in the gallbladder fossa. IMPRESSION: No evidence of pulmonary embolism or aortic dissection. CT was performed with one or more following dose reduction techniques: automated exposure control, adjustment of the mA and kv according to patient's size, or use of a iterative reconstruction technique.
[2025-04-19 13:57] VITALS: BP 147/79; PULSE 60; RESP 17; TEMP 98; O2SAT 99
--- NOTE | 2025-04-19 14:17 | NUR ---
DC PATIENT WAS DC'D BY DR GRIMES, I DC'D PATIENTS IV WITH CATH STILL INTACT AND APPLIED 2X2 GAUZE WITH COBAN I EXPLAINED TO PATIENT TO FOLLOW UP WITH PCP, PROVIDED INFO BASED ON DIAGNOSIS, AND ANSWERED ANY FOLLOW UP QUESTIONS, PATIENT WAS WHEELCHAIRED OUT OF ED BY ME, NO COMPLICATIONS
== END 2025-04-19 14:11 | disposition home or self-care (01) ==
LOC: EDH 09:55
DX: R07.89 Other chest pain (principal); R42 Dizziness and giddiness; E11.9 Type 2 diabetes mellitus without complications; I10 Essential (primary) hypertension; E78.00 Pure hypercholesterolemia, unspecified; Z90.49 Acquired absence of other specified parts of digestive tract; Z90.710 Acquired absence of both cervix and uterus; Z90.89 Acquired absence of other organs; Z88.8 Allergy status to other drugs, medicaments and biological substances; Z79.82 Long term (current) use of aspirin; Z79.899 Other long term (current) drug therapy
CPT/HCPCS: 99285; 96374; 71270; 71045; 83735; 84484 ×2; 80048; 85025; 85378; 82550; 85610; 85730; 36415; 93005; J2270; Q9967